=== PATIENT | male | born 1960 | race Caucasian/White ===

== ENCOUNTER 2023-12-30 09:53 | Day surgery (SDC) | payer OTHER ==
[~2023-12-30] VITALS: Ht 177.8 cm; Wt 86.6 kg
[2023-12-30] MEDS: fentaNYL citrate 0.05 MG/ML VIAL IVP ONE (11:04)
[2023-12-30] MEDS ORDERED: LIDOCAINE 2% 100 MG/5 ML UJET TP ONE (12:47)
[2023-12-30] MEDS ORDERED: fentaNYL citrate 0.05 MG/ML VIAL ONE (12:47)
== END 2023-12-30 13:50 | disposition home or self-care (01) ==
LOC: MDS 09:53 → MMU 10:16 → MDS 13:50
PROVIDERS: ATTEND Internal Medicine Gastroenterology
DX: Z12.11 Encounter for screening for malignant neoplasm of colon (principal); I10 Essential (primary) hypertension; F17.210 Nicotine dependence, cigarettes, uncomplicated; Z86.73 Personal history of transient ischemic attack (TIA), and cerebral infarction without residual deficits; Z98.890 Other specified postprocedural states; Z79.899 Other long term (current) drug therapy
CPT/HCPCS: G0121; J3010

== ENCOUNTER 2024-01-08 11:08 | Day surgery (SDC) | payer OTHER, MEDICAID ==
[~2024-01-08] VITALS: Ht 177.8 cm; Wt 86.6 kg
[2024-01-08] MEDS ORDERED: fentaNYL citrate 0.05 MG/ML VIAL ONE (12:24)
[2024-01-08] MEDS ORDERED: LIDOCAINE 1% 500 MG/50 ML VIAL ONE (12:24)
[2024-01-08] MEDS: fentaNYL citrate 0.05 MG/ML VIAL IVP ONE (12:26)
[2024-01-08] MEDS: ACETAMINOPHEN EXTRA STRENGTH 500 MG TAB ONE (13:20)
[2024-01-08] MEDS ORDERED: ACETAMINOPHEN EXTRA STRENGTH 500 MG TAB PO ONE (13:25)
== END 2024-01-08 15:20 | disposition home or self-care (01) ==
LOC: MDS 11:08 → MMU 11:10 → MDS 15:20
PROVIDERS: ATTEND Internal Medicine Gastroenterology
DX: B18.2 Chronic viral hepatitis C (principal); I10 Essential (primary) hypertension; Z87.891 Personal history of nicotine dependence; Z79.899 Other long term (current) drug therapy; Z98.890 Other specified postprocedural states
CPT/HCPCS: 47000; 76942; J2001; J3010; Q0092